=== PATIENT | male | born 1960 | race Caucasian/White ===

== ENCOUNTER 2017-04-20 08:00 | Emergency (ER) | payer MEDICAID, OTHER ==
[~2017-04-20] VITALS: Ht 193 cm; Wt 110.0 kg
[~2017-04-20 08:00] MED LIST: ABIL30TA2 PO; ASPI1TAB69 PO; CLOP75TA PO; GABA400C5 PO; HYDR-3583 PO; ISOS20TA PO; LANTUS2P SQ; LISI10TA3 PO; METO25TA3 PO; MIRT30TA PO; NITR1SUB3 SL; NOVOLOGSS; SIMV40TA PO; TRAZ150T75 PO; ZIPR1CAP12 PO
[2017-04-20 08:02] VITALS: BP 129/64; PULSE 72; RESP 14; TEMP 98.2; O2SAT 99
--- NOTE | 2017-04-20 08:49 | PD ---
HPI Chief Complaint: Skin Problem Time Seen by Provider: 08:19 Travel History International Travel<30 days: No Contact w/Intl Traveler<30days: No Traveled to known affect area: No History of Present Illness HPI Patient 48-year-old female presents emergency department for evaluation of left lower extremity wound and redness. Patient is a diabetic and states that he is followed with Dr. Mcallister for his podiatry. States that on Thursday he bumped his left griffin while working on the floor with his friend and since then he's noticed the redness started coming back. He is concerned because he has had MRSA of the same foot on his heel before. He denies any fevers nausea vomiting diarrhea or other systemic symptoms. States his symptoms have been gradually worsening. He has not been able to follow-up with his treatment coordinator as of yet. PFSH Past Medical History Hx Anticoagulant Therapy: Yes (plavix) Arthritis: Yes (OA) Asthma: No Autoimmune Disease: No Bipolar Disorder: Yes Anxiety: Yes Depression: Yes Heart Rhythm Problems: Yes (BRADYCARDIA) Cancer: Yes (SKIN ) Cardiac Catheterization: Yes (X 5, NO STENTS, MEDICALLY MANAGED) Cardiovascular Problems: Yes (SC) High Cholesterol: Yes Chemotherapy: No Chest Pain: Yes Congestive Heart Failure: No COPD: No Cerebrovascular Accident: Yes Coronary Artery Disease: Yes Diabetes: Yes Patient Takes Glucophage: No Diminished Hearing: No Endocrine: Yes Fibromyalgia: Yes Gastrointestinal Disorders: Yes (PANCREATITIS) GERD: Yes Genitourinary: No Headaches: Yes Hiatal Hernia: No Heparin Induced Thrombocytopen: No Hypertension: Yes Immune Disorder: No Implanted Vascular Access Dvce: Yes Kidney Stones: No Medical other: Yes (ARTHRITIS) Musculoskeletal: Yes Neurologic: Yes (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) Reproductive: No Respiratory: Yes (DYSPNEA ON EXERTION) Integumentary: Yes (PSORIASIS) Immunizations Current: Yes Migraines: Yes Myocardial Infarction: Yes (X 2) Pancreatitis: Yes Radiation Therapy: No Renal Failure: No Schizophrenia: Yes Seizures: Yes (2007) Sickle Cell Disease: No Sleep Apnea: Yes (NO CPAP) Thyroid Disease: No Ulcer: Yes (PUD) PNEUMOCCOCAL Vaccine (Year): 1 Past Surgical History Abdominal Surgery: No AICD: No Appendectomy: No Arteriovenous Shunt: No Body Medical Devices: HARDWARE IN LEFT LEG Cardiac Surgery: Yes (4 ANGIOPLASTY) Ear Surgery: No Endocrine Surgery: No Eye Surgery: No Genitourinary Surgery: No Gynecologic Surgery: No Insulin Pump: No Joint Replacement: Yes (LLE PLATE AND SCREWS) Neurologic Surgery: No Oral Surgery: Yes (MULTIPLE EXTRACTIONS) Pacemaker: No Thoracic Surgery: No Other Surgery: Yes (LLE PLATE AND SCREWS, RIGHT HAND SURGERY) Social History Alcohol Use: Yes (on occasion) Tobacco Use: No Substance Use: No Allergies-Medications (Allergen,Severity, Reaction): Coded Allergies: Codeine (Verified Allergy, Severe, THROAT SWEELING, 04/06/17) Prozac (Verified Allergy, Severe, Swelling, 04/06/17) *MDRO Multi-Drug Resistant Organism (Verified Allergy, Unknown, 04/06/17) MRSA heel wound 2007 MRSA PCR Screen negative 08/07/15 and 08/09/15. Cleared per Infection Control. Uncoded Allergies: OATMEAL (Allergy, Severe, HIVES, 08/29/09) Reported Meds & Prescriptions Reported Meds & Active Scripts Active Doxycycline Hyclate 100 Mg Cap 100 Mg PO BID 10 Days Reported Hydrocodone-Acetaminophen 10-325 mg Tab 1 Tab PO QID PRN Nitroglycerin SL (Nitroglycerin) 0.4 Mg Subl 0.4 Mg SL DIRECTED PRN ONE TABLET UNDER THE TONGUE NEEDED FOR CHEST PAIN, MAY REPEAT EVERY FIVE MINUTES FOR A TOTAL OF 3 DOSES OR CALL 911 IF NO RELIEF Ziprasidone 80 Mg Cap 80 Mg PO BID Simvastatin 40 Mg Tab 40 Mg PO HS Trazodone (Trazodone HCl) 150 Mg Tab 300 Mg PO HS Mirtazapine 30 Mg Tab 30 Mg PO HS Isosorbide Mononitrate 20 Mg Tab 30 Mg PO DAILY Take 2 doses 7 hours apart. Lantus Inj (Insulin Glargine) 1,000 Unit/10 Ml Vial 40 Units SQ HS Novolog Inj (Insulin Aspart) 100 Unit/Ml Inj 100 Ml .XX DIRECTED Gabapentin 400 Mg Cap 400 Cap PO QID Clopidogrel (Clopidogrel Bisulfate) 75 Mg Tab 75 Mg PO DAILY Aspirin 81 Mg Tabdr 81 Mg PO DAILY Abilify (Aripiprazole) 30 Mg Tab 30 Mg PO DAILY Metoprolol Tartrate 25 Mg Tab 25 Mg PO Q12HR Lisinopril 10 Mg Tab 10 Mg PO DAILY Review of Systems Except as stated in HPI: all other systems reviewed are Neg Physical Exam Narrative GENERAL: Well-developed well-nourished no apparent distress SKIN: There is a small abrasion in the anterior distal most griffin over the tibia. Minimal surrounding erythema. There is also some minimal surrounding soft tissue edema without any evidence of abscess. Injure webspace and plantar surfaces her intact. There is no no lymphangitis HEAD: Atraumatic. Normocephalic. EYES: Pupils equal and round. No scleral icterus. No injection or drainage. ENT: No nasal bleeding or discharge. Mucous membranes pink and moist. NECK: Trachea midline. No JVD. CARDIOVASCULAR: Regular rate and rhythm. No murmur appreciated. RESPIRATORY: No accessory muscle use. Clear to auscultation. Breath sounds equal bilaterally. GASTROINTESTINAL: Abdomen soft, non-tender, nondistended. Hepatic and splenic margins not palpable. MUSCULOSKELETAL: No obvious deformities. No clubbing. No cyanosis. No edema. NEUROLOGICAL: Awake and alert. No obvious cranial nerve deficits. Motor grossly within normal limits. Normal speech. PSYCHIATRIC: Appropriate mood and affect; insight and judgment normal. Data Data Last Documented VS Vital Signs Date Time Temp Pulse Resp B/P Pulse Ox O2 Delivery O2 Flow Rate FiO2 04/20/17 08:12 89 18 04/20/17 08:02 98.2 129/64 99 Orders Complete Blood Count With Diff (04/20/17 08:19) Basic Metabolic Panel (Bmp) (04/20/17 08:19) Tibia/Fibula (Ap/Lat) (04/20/17 ) Acetaminophen (Tylenol) (04/20/17 10:00) Doxycycline (Vibramycin) (04/20/17 11:00) Labs Laboratory Tests Test 04/20/17 04/20/17 09:12 09:47 Sodium Level 136 MEQ/L Potassium Level 4.9 MEQ/L Chloride Level 101 MEQ/L Carbon Dioxide Level 27.1 MEQ/L Anion Gap 8 MEQ/L Blood Urea Nitrogen 27 MG/DL Creatinine 1.67 MG/DL Estimat Glomerular Filtration 42 ML/MIN Rate Random Glucose 232 MG/DL Calcium Level 9.3 MG/DL White Blood Count 2.8 TH/MM3 Red Blood Count 4.30 MIL/MM3 Hemoglobin 13.0 GM/DL Hematocrit 38.2 % Mean Corpuscular Volume 88.8 FL Mean Corpuscular Hemoglobin 30.1 PG Mean Corpuscular Hemoglobin 33.9 % Concent Red Cell Distribution Width 12.8 % Platelet Count 112 TH/MM3 Mean Platelet Volume 8.5 FL Neutrophils (%) (Auto) 60.1 % Lymphocytes (%) (Auto) 26.1 % Monocytes (%) (Auto) 8.0 % Eosinophils (%) (Auto) 4.5 % Basophils (%) (Auto) 1.3 % Neutrophils # (Auto) 1.7 TH/MM3 Lymphocytes # (Auto) 0.7 TH/MM3 Monocytes # (Auto) 0.2 TH/MM3 Eosinophils # (Auto) 0.1 TH/MM3 Basophils # (Auto) 0.0 TH/MM3 CBC Comment DIFF FINAL Differential Comment MDM Medical Decision Making Medical Screen Exam Complete: Yes Emergency Medical Condition: Yes Differential Diagnosis Cellulitis, osteomyelitis seems highly unlikely, sepsis seems highly unlikely, diabetic feet. Narrative Course Patient was roomed emergency department, basic labs were drawn and sent. The patient seems to have an uncomplicated early cellulitis of left lower extremity. Patient does have a history of chronic renal insufficiency and with his diabetes he will be placed on doxycycline. His basic labs are reassuring. Discussed need follow-up with his treatment coordinator and return to ED criteria. Diagnosis Primary Impression: Cellulitis Qualified Code: L03.116 - Cellulitis of left lower extremity Med/Other Pt SpecificInfo: Prescription(s) given Scripts Doxycycline Hyclate 100 Mg [id number] Mg PO BID 10 Days Ref 0 Prov:Edwin Gardner MD 04/20/17 Disposition: 01 DISCHARGE HOME Condition: Stable Edwin Gardner MD April 20, 2017 08:49
--- NOTE | 2017-04-20 09:16 | RADRPT ---
EXAM DATE/TIME: 04/20/2017 08:16 [facility] COMPARISON: No previous studies available for comparison. INDICATIONS : Patient states distal lower leg pain. MEDICAL HISTORY : Hypertension. SURGICAL HISTORY : Left Tib/Fib ORIF 2005 ENCOUNTER: Initial ACUITY: 3 days PAIN SCORE: 7/10 LOCATION: Distal leg. FINDINGS: AP and lateral views of the left tibia and fibula were obtained and demonstrate that the patient is s tatus post open ridgid internal fixation with screw-plate fixation devices transfixing mid and distal femur fractures as well as distal fibular fracture. The alignment is anatomic. No fractures appear o ld. There is soft tissue swelling over the distal fibula. There is no acute fracture or malalignment. There is a spur off the inferior calcaneus at the site of attachment of the plantar aponuerosis. The re are well-corticated ossific structures along the distal fibula. These may be related to remote tra tino. CONCLUSION: 1. Mild soft tissue swelling over the distal fibula with no acute bony abnormality. 2. Status post remote open ridgid internal fixation. Ariel Jack MD on April 20, 2017 at 9:13 Board Certified Radiologist. This report was verified electronically.
[2017-04-20 09:58] LABS: AUTOMATED NEUTROPHIL # 1.7 TH/MM3 (1.8-7.7); BASOPHIL % 1.3 % (0.0-2.0); EOSINOPHIL # 0.1 TH/MM3 (0-0.4); EOSINOPHIL % 4.5 % (0.0-4.0); HEMATOCRIT 38.2 % (39.0-51.0); HEMO FLAGS DIFF FINAL; LYMPH % 26.1 % (9.0-44.0); LYMPHOCYTE # 0.7 TH/MM3 (1.0-4.8); MEAN CELL VOLUME 88.8 FL (80.0-100.0); MEAN CORPUSCULAR HEMOGLOBIN 30.1 PG (27.0-34.0); MEAN CORPUSCULAR HGB CONC 33.9 % (32.0-36.0); NEUT % 60.1 % (16.0-70.0); PLATELET COUNT 112 TH/MM3 (150-450); RED CELL DISTRIBUTION WIDTH 12.8 % (11.6-17.2); WHITE BLOOD COUNT 2.8 TH/MM3 (4.0-11.0)
[2017-04-20] MEDS ORDERED: ACETAMINOPHEN 325 MG TAB PO ONE (10:00)
[2017-04-20 10:03] LABS: BICARBONATE 27.1 MEQ/L (21.0-32.0); POTASSIUM 4.9 MEQ/L (3.5-5.1)
[2017-04-20] MEDS ORDERED: DOXY100C PO (10:48)
[2017-04-20] MEDS ORDERED: DOXYCYCLINE HYCLATE 100 MG CAP PO ONE (11:00)
== END 2017-04-20 11:48 | disposition home or self-care (01) ==
LOC: NEPE 08:00
DX: L03.116 Cellulitis of left lower limb (principal); E11.9 Type 2 diabetes mellitus without complications; E78.00 Pure hypercholesterolemia, unspecified; I25.2 Old myocardial infarction; I25.10 Atherosclerotic heart disease of native coronary artery without angina pectoris; M79.7 Fibromyalgia; I10 Essential (primary) hypertension; Z86.73 Personal history of transient ischemic attack (TIA), and cerebral infarction without residual deficits; Z79.02 Long term (current) use of antithrombotics/antiplatelets; Z86.14 Personal history of Methicillin resistant Staphylococcus aureus infection
CPT/HCPCS: 73590; 80048; 85025; 99284

== ENCOUNTER 2017-06-30 09:05 | Inpatient (IN) | payer OTHER, MEDICARE ==
[2017-06-30] VITALS (17 sets, daily range): BP systolic 130–160; BP diastolic 81–90; PULSE 54–79; RESP 18–20; TEMP 97.3–98.5; O2SAT 96–100
[~2017-06-30 09:05] MED LIST changes: +DOXY100C PO
[2017-06-30] MEDS ORDERED: ASPI81CH CHEW (09:28)
[2017-06-30] MEDS ORDERED: LANTUS2P SQ (09:28)
[2017-06-30] MEDS ORDERED: TRAZ300T2 PO (09:28)
[2017-06-30] MEDS ORDERED: SODIUM CHLORIDE 0.9% FLUSH 10 ML FLUSH IVF PRN (09:30)
[2017-06-30 09:58] LABS: AUTOMATED NEUTROPHIL # 1.6 TH/MM3 (1.8-7.7); BASOPHIL % 0.9 % (0.0-2.0); EOSINOPHIL # 0.1 TH/MM3 (0-0.4); EOSINOPHIL % 3.2 % (0.0-4.0); HEMATOCRIT 37.8 % (39.0-51.0); HEMO FLAGS DIFF FINAL; LYMPH % 33.4 % (9.0-44.0); MEAN CELL VOLUME 87.2 FL (80.0-100.0); MEAN CORPUSCULAR HEMOGLOBIN 29.7 PG (27.0-34.0); MEAN CORPUSCULAR HGB CONC 34.1 % (32.0-36.0); MONO % 8.6 % (0.0-8.0); NEUT % 53.9 % (16.0-70.0); PLATELET COUNT 124 TH/MM3 (150-450); RED BLOOD COUNT 4.33 MIL/MM3 (4.50-5.90); RED CELL DISTRIBUTION WIDTH 12.6 % (11.6-17.2)
[2017-06-30] MEDS ORDERED: ASPIRIN 81 MG CHEW TAB CHEW ONE ×2 (10:00)
[2017-06-30] MEDS ORDERED: NITROGLYCERIN 0.4 MG SL 25 TABS/BTL SL ONE (10:00)
--- NOTE | 2017-06-30 10:04 | PD ---
HPI Chief Complaint: Cardiac Complaint Time Seen by Provider: 09:15 Travel History International Travel<30 days: No Contact w/Intl Traveler<30days: No Traveled to known affect area: No History of Present Illness HPI Patient is a 57-year-old male with a history of coronary artery disease last stress test was in June 2016 presents the emergency department with chest tightness in the middle of his chest with radiation down his left arm, it was shortness of breath since this morning. Patient states he was on the bus going to request to have his routine lab work done first position when the symptoms started. He states it feels like the last time he was in the hospital when he had a cardiac workup which was essentially negative and discharged home. He states he follows with Dr. abbott. He has not had a follow-up appointment with Dr. Vee in some time. He took his baby aspirin this morning as well as his Plavix. PFSH Past Medical History Hx Anticoagulant Therapy: Yes (PLAVIX) Arthritis: Yes (OA) Asthma: No Autoimmune Disease: No Bipolar Disorder: Yes Anxiety: Yes Depression: Yes Heart Rhythm Problems: Yes (BRADYCARDIA) Cancer: Yes (SKIN ) Cardiac Catheterization: Yes (X 5, NO STENTS, MEDICALLY MANAGED) Cardiovascular Problems: Yes High Cholesterol: Yes Chemotherapy: No Chest Pain: Yes Congestive Heart Failure: No COPD: No Cerebrovascular Accident: Yes Coronary Artery Disease: Yes Diabetes: Yes Patient Takes Glucophage: No Diminished Hearing: No Endocrine: Yes Fibromyalgia: Yes Gastrointestinal Disorders: Yes (PANCREATITIS) GERD: Yes Genitourinary: No Headaches: Yes Hiatal Hernia: No Heparin Induced Thrombocytopen: No Hypertension: Yes Immune Disorder: No Implanted Vascular Access Dvce: Yes Kidney Stones: No Medical other: Yes (ARTHRITIS) Musculoskeletal: Yes Neurologic: Yes (stroke in 2008. left sided weakness residual) Psychiatric: Yes (AGORAPHOBIA) Reproductive: No Respiratory: Yes (DYSPNEA ON EXERTION) Integumentary: Yes (PSORIASIS) Immunizations Current: Yes Migraines: Yes Myocardial Infarction: Yes (X 2) Pancreatitis: Yes Radiation Therapy: No Renal Failure: No Schizophrenia: Yes Seizures: Yes (2007) Sickle Cell Disease: No Sleep Apnea: Yes (NO CPAP) Thyroid Disease: No Ulcer: Yes (PUD) Tetanus Vaccination: < 5 Years PNEUMOCCOCAL Vaccine (Year): 1 Past Surgical History Abdominal Surgery: No AICD: No Appendectomy: No Arteriovenous Shunt: No Body Medical Devices: HARDWARE IN LEFT LEG Cardiac Surgery: Yes (4 ANGIOPLASTY) Ear Surgery: No Endocrine Surgery: No Eye Surgery: No Genitourinary Surgery: No Gynecologic Surgery: No Insulin Pump: No Joint Replacement: Yes (LLE PLATE AND SCREWS) Neurologic Surgery: No Oral Surgery: Yes (MULTIPLE EXTRACTIONS) Pacemaker: No Thoracic Surgery: No Other Surgery: Yes (LLE PLATE AND SCREWS, RIGHT HAND SURGERY) Social History Alcohol Use: Yes (on occasion) Tobacco Use: No Substance Use: No Allergies-Medications (Allergen,Severity, Reaction): Coded Allergies: Codeine (Verified Allergy, Severe, THROAT SWEELING, 06/30/17) Prozac (Verified Allergy, Severe, Swelling, 06/30/17) *MDRO Multi-Drug Resistant Organism (Verified Allergy, Unknown, 06/30/17) MRSA heel wound 2007 MRSA PCR Screen negative 08/07/15 and 08/09/15. Cleared per Infection Control. Uncoded Allergies: OATMEAL (Allergy, Severe, HIVES, 08/29/09) Reported Meds & Prescriptions Reported Meds & Active Scripts Active Reported Trazodone (Trazodone HCl) 300 Mg Tab 300 Mg PO HS Lantus Inj (Insulin Glargine) 1,000 Unit/10 Ml Vial 16 Units SQ [facility] [employer] D[employer]NER Aspirin 81 Mg Chew 81 Mg CHEW DAILY Hydrocodone-Acetaminophen 10-325 mg Tab 1 Tab PO QID PRN Nitroglycerin SL (Nitroglycerin) 0.4 Mg Subl 0.4 Mg SL DIRECTED PRN ONE TABLET UNDER THE TONGUE NEEDED FOR CHEST PAIN, MAY REPEAT EVERY FIVE MINUTES FOR A TOTAL OF 3 DOSES OR CALL 911 IF NO RELIEF Ziprasidone 80 Mg Cap 80 Mg PO BID Simvastatin 40 Mg Tab 40 Mg PO HS Mirtazapine 30 Mg Tab 30 Mg PO HS Isosorbide Mononitrate 20 Mg Tab 30 Mg PO DAILY Take 2 doses 7 hours apart. Lantus Inj (Insulin Glargine) 1,000 Unit/10 Ml Vial 65 Units SQ HS Novolog Inj (Insulin Aspart) 100 Unit/Ml Inj 100 Ml .XX DIRECTED Gabapentin 400 Mg Cap 400 Cap PO QID Clopidogrel (Clopidogrel Bisulfate) 75 Mg Tab 75 Mg PO DAILY Abilify (Aripiprazole) 30 Mg Tab 30 Mg PO DAILY Metoprolol Tartrate 25 Mg Tab 25 Mg PO Q12HR Lisinopril 10 Mg Tab 10 Mg PO DAILY Review of Systems Except as stated in HPI: all other systems reviewed are Neg Physical Exam Narrative GENERAL: Well-developed well-nourished in no obvious distress SKIN: Focused skin assessment warm/dry. HEAD: Atraumatic. Normocephalic. EYES: Pupils equal and round. No scleral icterus. No injection or drainage. ENT: No nasal bleeding or discharge. Mucous membranes pink and moist. NECK: Trachea midline. No JVD. CARDIOVASCULAR: Regular rate and rhythm. No murmur appreciated. 2+ bilaterally equal pulses in all 4 extremities. RESPIRATORY: No accessory muscle use. Clear to auscultation. Breath sounds equal bilaterally. GASTROINTESTINAL: Abdomen soft, non-tender, nondistended. Hepatic and splenic margins not palpable. MUSCULOSKELETAL: No obvious deformities. No clubbing. No cyanosis. No edema. NEUROLOGICAL: Awake and alert. No obvious cranial nerve deficits. Motor grossly within normal limits. Normal speech. PSYCHIATRIC: Appropriate mood and affect; insight and judgment normal. Somewhat odd but certainly not gravely disabled, denies suicidal homicidal ideation. Data Data Last Documented VS Vital Signs Date Time Temp Pulse Resp B/P Pulse Ox O2 Delivery O2 Flow Rate FiO2 06/30/17 11:14 66 18 157/85 98 06/30/17 10:10 Room Air 06/30/17 09:08 97.3 Orders Electrocardiogram (06/30/17 09:18) Ckmb (Isoenzyme) Profile (06/30/17 09:18) Complete Blood Count With Diff (06/30/17 09:18) Comprehensive Metabolic Panel (06/30/17 09:18) Magnesium (Mg) (06/30/17 09:18) Prothrombin Time / Inr (Pt) (06/30/17 09:18) Act Partial Throm Time (Ptt) (06/30/17 09:18) Troponin I (06/30/17 09:18) Lipase (06/30/17 09:18) Ecg Monitoring (06/30/17 09:18) Iv Access Insert/Monitor (06/30/17 09:18) Oximetry (06/30/17 09:18) Oxygen Administration (06/30/17 09:18) Sodium Chloride 0.9% Flush (Ns Flush) (06/30/17 09:30) Aspirin Chew (Aspirin Chew) (06/30/17 10:00) Aspirin Chew (Aspirin Chew) (06/30/17 10:00) Nitroglycerin Sl (Nitrostat Sl) (06/30/17 10:00) Chest, Single Ap (06/30/17 ) CKMB (06/30/17 09:35) CKMB% (06/30/17 09:35) Vascular Access Team Consult/P PRN (06/30/17 11:02) Vascular Poc Ultrasound (06/30/17 ) Heparin Infusion AURELIA.Q1H (06/30/17 11:27) Heparin Inj (Heparin Inj) (06/30/17 11:30) Heparin Inj (Heparin Inj) (06/30/17 17:30) Heparin Inj (Heparin Inj) (06/30/17 17:30) Heparin-D5w Inj (Heparin-D5w Inj) (06/30/17 11:30) Cbc No Diff, Includes Plts (07/03/17 06:00) Act Partial Throm Time (Ptt) (06/30/17 18:27) Occult Blood (Hemoccult) Stool (06/30/17 11:27) Admit Order (Ed Use Only) (06/30/17 ) Labs Laboratory Tests Test 06/30/17 09:35 White Blood Count 3.0 TH/MM3 Red Blood Count 4.33 MIL/MM3 Hemoglobin 12.9 GM/DL Hematocrit 37.8 % Mean Corpuscular Volume 87.2 FL Mean Corpuscular Hemoglobin 29.7 PG Mean Corpuscular Hemoglobin 34.1 % Concent Red Cell Distribution Width 12.6 % Platelet Count 124 TH/MM3 Mean Platelet Volume 8.0 FL Neutrophils (%) (Auto) 53.9 % Lymphocytes (%) (Auto) 33.4 % Monocytes (%) (Auto) 8.6 % Eosinophils (%) (Auto) 3.2 % Basophils (%) (Auto) 0.9 % Neutrophils # (Auto) 1.6 TH/MM3 Lymphocytes # (Auto) 1.0 TH/MM3 Monocytes # (Auto) 0.3 TH/MM3 Eosinophils # (Auto) 0.1 TH/MM3 Basophils # (Auto) 0.0 TH/MM3 CBC Comment DIFF FINAL Differential Comment Prothrombin Time 11.3 SEC Prothromb Time International 1.0 RATIO Ratio Activated Partial 24.9 SEC Thromboplast Time Sodium Level 139 MEQ/L Potassium Level 3.9 MEQ/L Chloride Level 102 MEQ/L Carbon Dioxide Level 27.5 MEQ/L Anion Gap 10 MEQ/L Blood Urea Nitrogen 17 MG/DL Creatinine 1.39 MG/DL Estimat Glomerular Filtration 52 ML/MIN Rate Random Glucose 212 MG/DL Calcium Level 8.8 MG/DL Magnesium Level 2.0 MG/DL Total Bilirubin 0.7 MG/DL Aspartate Amino Transf 18 U/L (AST/SGOT) Alanine Aminotransferase 22 U/L (ALT/SGPT) Alkaline Phosphatase 74 U/L Total Creatine Kinase 331 U/L Creatine Kinase MB 11.3 NG/ML Creatine Kinase MB % 3.4 % Troponin I 0.15 NG/ML Total Protein 7.3 GM/DL Albumin 4.3 GM/DL Lipase 109 U/L MDM Medical Decision Making Medical Screen Exam Complete: Yes Emergency Medical Condition: Yes Interpretation(s) EKG shows sinus rhythm with a right bundle branch block, left anterior fascicular block consistent with bifascicular block. T-wave flattening in [address] No concerning [address] segment elevations. Comparison to a 02/17/16 shows no change. This is an abnormal EKG. Differential Diagnosis ACS, [place], pneumonia, GERD. Narrative Course Patient roomed in emergency department, abnormal bifascicular block on EKG but no change from previous EKG. His troponin is 0.15 which is new for him. He states he follows with Dr. Mariusz Gerard discussed with him and I think that he has a good enough story to heparinize him at this point. Dr. Coronel had no objections and caroll see him. Patient was discussed with Dr. Mazariegos for admission. Patient is chest pain-free in the emergency department. Diagnosis Primary Impression: Acute coronary syndrome Admitting Information Admitting Physician Requests: Admit Condition: Stable Edwin Gardner MD Jun 30, 2017 10:04
[2017-06-30 10:07] LABS: APTT (PATIENT) 24.9 SEC (24.3-30.1); PROTHROMBIN TIME - PATIENT 11.3 SEC (9.8-11.6)
[2017-06-30 10:24] LABS: ANION GAP 10 MEQ/L (5-15); AST (GOT) 18 U/L (15-37); BICARBONATE 27.5 MEQ/L (21.0-32.0); BLOOD UREA NITROGEN 17 MG/DL (7-18); CHLORIDE 102 MEQ/L (98-107); GLOMERULAR FILTRATION RATE 52 ML/MIN (>89); POTASSIUM 3.9 MEQ/L (3.5-5.1); SODIUM (NA) 139 MEQ/L (136-145)
[2017-06-30 10:29] LABS: ALKALINE PHOSPHATASE 74 U/L (45-117); ALT (GPT) 22 U/L (12-78); CREATINE KINASE 331 U/L (39-308); TOTAL BILIRUBIN ADULT 0.7 MG/DL (0.2-1.0)
--- NOTE | 2017-06-30 10:37 | RADRPT ---
EXAM DATE/TIME: 06/30/2017 10:11 [facility] COMPARISON: CHEST SINGLE AP, July 02, 2016, 17:02. INDICATIONS : Short of breath. Left arm numbness today. MEDICAL HISTORY : Hypertension. Diabetes mellitus type 2. Cardiovascular disease. SURGICAL HISTORY : None. ENCOUNTER: Initial ACUITY: 1 day PAIN SCORE: 0/10 LOCATION: Bilateral chest FINDINGS: A single view of the chest demonstrates the lungs to be symmetrically aerated without evidence of mas s, infiltrate or effusion. The cardiomediastinal contours are unremarkable. Osseous structures are intact. CONCLUSION: No acute disease. Royal Shay MD on June 30, 2017 at 10:33 Board Certified Radiologist. This report was verified electronically.
[2017-06-30 10:41] LABS: CKMB 11.3 NG/ML (0.5-3.6)
[2017-06-30] MEDS ORDERED: HEPARIN SODIUM - IV 10,000 UNITS/10 ML VIAL IV ONE (11:30)
[2017-06-30] MEDS ORDERED: MAGNESIUM HYDROXIDE SUSP 30 ML CUP PO PRN (11:45)
[2017-06-30] MEDS ORDERED: BISACODYL 10 MG SUPP RECTAL PRN (11:45)
[2017-06-30] MEDS ORDERED: LACTULOSE SYRUP 20 GM/30 ML CUP PO PRN (11:45)
[2017-06-30] MEDS ORDERED: ONDANSETRON HCL 4 MG/2 ML VIAL IVP PRN (11:45)
[2017-06-30] MEDS ORDERED: NALOXONE HCL 0.4 MG/ML AMP IV PRN (11:45)
[2017-06-30] MEDS ORDERED: SODIUM CHLORIDE 0.9% FLUSH 10 ML FLUSH IV FLUSH PRN (11:45)
[2017-06-30] MEDS ORDERED: SENNOSIDES 8.6 MG TAB PO PRN (11:45)
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
[2017-06-30] MEDS: HEPARIN-D5W INJ 250 ML IV SCH (12:12)
[2017-06-30] MEDS: SODIUM CHLOR 0.9% 1000 ML INJ 1,000 ML IV SCH (14:00)
[2017-06-30 15:18] LABS: BACTERIA, URINE RARE /hpf; BLOOD, URINE NEG (NEG); COMMENT (UR) CULT NOT INDICATED; CULTURE IF INDICATED CULT NOT INDICATED; GLUCOSE,URINE TRACE mg/dL (NEG); KETONE, URINE NEG (NEG); NITRITE,URINE NEG (NEG); SQUAMOUS EPITHELIAL CELL URINE <1 /hpf (0-5); URINE COLOR LIGHT-YELLOW (YELLW/STRAW)
[2017-06-30] MEDS: INSULIN ASPART SUPPLEMENTAL SCALE SQ SCH ×2 (15:29→21:03)
[2017-06-30] MEDS: GABAPENTIN 300 MG CAP PO SCH ×3 (16:00→20:57)
[2017-06-30] MEDS: ACETAMINOPHEN/HYDROcodone 325 MG/10 MG TAB PO PRN (16:01)
[2017-06-30] MEDS ORDERED: HEPARIN SODIUM - IV 10,000 UNITS/10 ML VIAL IV PRN ×2 (17:30)
[2017-06-30] MEDS ORDERED: ACETAMINOPHEN/HYDROcodone 325 MG/10 MG TAB PO PRN (18:15)
[2017-06-30 19:12] LABS: CHLAMYDIA PCR NOT DETECTED (NOT DETECT); NEISSERIA PCR NOT DETECTED (NOT DETECT)
[2017-06-30] MEDS: SODIUM CHLORIDE 0.9% FLUSH 10 ML FLUSH IV FLUSH SCH (20:57)
[2017-06-30] MEDS: METOPROLOL TARTRATE 25 MG TAB PO SCH (20:57)
[2017-06-30] MEDS ORDERED: ZIPRASIDONE HCL 80 MG CAP PO SCH (21:00)
[2017-06-30] MEDS ORDERED: ACETAMINOPHEN/HYDROcodone 325 MG/10 MG TAB PO ONE (21:00)
[2017-06-30] MEDS ORDERED: MIRTAZAPINE 15 MG TAB PO SCH (21:00)
[2017-06-30] MEDS ORDERED: PRAVASTATIN SOD 80 MG TAB PO SCH (21:00)
[2017-06-30 21:06] LABS: APTT (PATIENT) 60.3 SEC (24.3-30.1)
[2017-06-30] MEDS: ZIPRASIDONE HCL 40 MG CAP PO SCH (22:10)
[2017-07-01] VITALS (17 sets, daily range): BP systolic 129–149; BP diastolic 78–95; PULSE 43–58; RESP 18–20; TEMP 97.4–98.6; O2SAT 97–98
[2017-07-01] MEDS: SODIUM CHLOR 0.9% 1000 ML INJ 1,000 ML IV SCH (01:19)
[2017-07-01 06:11] LABS: BASOPHIL % 1.2 % (0.0-2.0); EOSINOPHIL # 0.1 TH/MM3 (0-0.4); EOSINOPHIL % 3.9 % (0.0-4.0); HEMO FLAGS DIFF FINAL; LYMPH % 35.2 % (9.0-44.0); LYMPHOCYTE # 1.3 TH/MM3 (1.0-4.8); MEAN CORPUSCULAR HEMOGLOBIN 30.6 PG (27.0-34.0); MEAN CORPUSCULAR HGB CONC 34.3 % (32.0-36.0); MONO % 6.1 % (0.0-8.0); NEUT % 53.6 % (16.0-70.0); PLATELET COUNT 139 TH/MM3 (150-450); RED BLOOD COUNT 4.83 MIL/MM3 (4.50-5.90); RED CELL DISTRIBUTION WIDTH 12.9 % (11.6-17.2); WHITE BLOOD COUNT 3.7 TH/MM3 (4.0-11.0)
[2017-07-01] MEDS: INSULIN ASPART SUPPLEMENTAL SCALE SQ SCH (06:11)
[2017-07-01 06:21] LABS: APTT (PATIENT) 32.2 SEC (24.3-30.1)
[2017-07-01 06:35] LABS: ALT (GPT) 24 U/L (12-78); ANION GAP 7 MEQ/L (5-15); AST (GOT) 17 U/L (15-37); BICARBONATE 29.3 MEQ/L (21.0-32.0); BLOOD UREA NITROGEN 12 MG/DL (7-18); CHLORIDE 101 MEQ/L (98-107); GLOMERULAR FILTRATION RATE 53 ML/MIN (>89); SODIUM (NA) 137 MEQ/L (136-145)
[2017-07-01 06:38] LABS: ALKALINE PHOSPHATASE 76 U/L (45-117)
[2017-07-01] MEDS ORDERED: CLOPIDOGREL 75 MG TAB PO SCH (09:00)
[2017-07-01] MEDS: SODIUM CHLORIDE 0.9% FLUSH 10 ML FLUSH IV FLUSH SCH (09:00)
[2017-07-01] MEDS ORDERED: ISOSORBIDE MONONITRATE 30 MG TAB PO SCH (09:00)
[2017-07-01] MEDS ORDERED: ASPIRIN 81 MG CHEW TAB CHEW SCH (09:00)
[2017-07-01] MEDS ORDERED: ARIPiprazole 30 MG TAB PO SCH (09:00)
[2017-07-01] MEDS ORDERED: LISINOPRIL 10 MG TAB PO SCH (09:00)
[2017-07-01] MEDS ORDERED: PANT20TA2 PO (09:33)
--- NOTE | 2017-07-01 09:34 | MB ---
cc: RENE DALE M.D. DATE OF CONSULTATION: 07/01/2017 REASON FOR CONSULTATION Chest pain, rule out angina. HISTORY OF PRESENT ILLNESS Mr. Alonso is a 57-year-old gentleman with a history of high blood pressure, coronary artery disease, previous KS, previous CVA, previous TIA, previous hospitalization last year due to chest pain. A nuclear stress study was negative. He was admitted yesterday due to chest and arm pain. The gentleman refers he was going to picker / packer his medication and felt a sharp pain in his left arm. He decided to come to the emergency room and he was admitted for further evaluation and management. The chart was reviewed. The patient was evaluated. ALLERGIES 1. CODEINE. 2. PROZAC. 3. OATMEAL. SOCIAL HISTORY The gentleman denies smoking and drinking. FAMILY HISTORY Noncontributory to his current medical condition. MEDICATIONS At home is on: 1. Trazodone. 2. Lantus. 3. Aspirin. 4. Hydrocodone. 5. Ziprasidone. 6. Mirtazapine. 7. Imdur. 8. NovoLog. 9. Neurontin. 10.Plavix. 11.Abilify. 12.Metoprolol. 13.Lisinopril. Heparin IV was initiated during hospitalization. REVIEW OF SYSTEMS He refers no chest pain, no chest discomfort, no fever. PHYSICAL EXAMINATION GENERAL: Alert, fully oriented. VITAL SIGNS: Blood pressure 140/90, pulse 52, respiratory rate 18. LUNGS: Ventilated. CARDIOVASCULAR: S1, S2. No gallop. No murmur. ABDOMEN: Soft. No mass. No bruit. EXTREMITIES: No edema. ELECTROCARDIOGRAM Electrocardiogram indicates sinus rhythm, left anterior fascicular block, right bundle branch block, diffuse ST changes, no significant change. LABORATORY Potassium 4.0. Creatinine 1.37. Troponin 0.01. INR 1.0. Hemoglobin 14. ASSESSMENT AND RECOMMENDATION Mr. Alonso has atypical left arm pain. No chest pain or discomfort. Troponin is negative. At this point discontinue IV heparin. The patient has no chest pain, no left arm pain since hospitalization. He has a previous nuclear stress study that was negative. No change in troponin. The gentleman wants to go home and be followed as an outpatient because he has an appointment this evening at 6:00 p.m. Okay to discharge home. I will see him in 3-4 weeks at the office. Rene Dale MD HS/BT /8:46 AM /9:16 AM
[2017-07-01] MEDS: METOPROLOL TARTRATE 25 MG TAB PO SCH (09:42)
[2017-07-01] MEDS: GABAPENTIN 300 MG CAP PO SCH (09:42)
[2017-07-01] MEDS: ZIPRASIDONE HCL 40 MG CAP PO SCH (09:43)
[2017-07-01] MEDS: ACETAMINOPHEN/HYDROcodone 325 MG/10 MG TAB PO PRN (09:44)
--- NOTE | 2017-07-01 09:47 | EKG ---
Date Performed: 06/30/2017 Time Performed: 17:45:14 PTAGE: 57 years EKG: Sinus rhythm with borderline 1st degree A-V block Left axis deviation RBBB with left anterior fascicular block Ab normal ECG PREVIOUS TRACING : 06/30/2017 09.31 DOCTOR: Awais Jurado Interpretating Date/Time 07/01/2017 09:47:20
[2017-07-01] MEDS: HEPARIN-D5W INJ 250 ML IV SCH (09:51)
--- NOTE | 2017-07-01 11:51 | EKG ---
Date Performed: 06/30/2017 Time Performed: 09:31:14 PTAGE: 57 years EKG: Sinus rhythm RIGHT BUNDLE BRANCH BLOCK LEFT ANTERIOR FASCICULAR BLOCK PROBABLE SEPTAL MYOCARDIAL INFARCTION ABNOR MAL ECG PREVIOUS TRACING : 07/02/2016 23.09 DOCTOR: Awais Jurado Interpretating Date/Time 07/01/2017 11:49:59
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
== END 2017-07-01 13:59 | disposition home or self-care (01) | DRG 313 ==
LOC: NEPC 09:05 → NEDA 11:34 → HCIS 13:30
PROVIDERS: ADMIT Internal Medicine; ATTEND Internal Medicine
DX: R07.9 Chest pain, unspecified (principal); I25.2 Old myocardial infarction; I10 Essential (primary) hypertension; M79.602 Pain in left arm; I25.10 Atherosclerotic heart disease of native coronary artery without angina pectoris; Z86.73 Personal history of transient ischemic attack (TIA), and cerebral infarction without residual deficits; E11.9 Type 2 diabetes mellitus without complications; Z79.4 Long term (current) use of insulin; I69.398 Other sequelae of cerebral infarction; H54.42 Blindness, left eye, normal vision right eye; R36.9 Urethral discharge, unspecified; R30.0 Dysuria; F31.9 Bipolar disorder, unspecified; E78.00 Pure hypercholesterolemia, unspecified; F40.00 Agoraphobia, unspecified; Z85.828 Personal history of other malignant neoplasm of skin
CPT/HCPCS: 71010; 76937; 80053; 81001; 82550; 82552; 82948; 83690; 83735; 84484; 85025; 85610; 85730; 87491; 87591; 93005; J1644; J1815; J7030

== ENCOUNTER 2018-04-22 14:45 | Emergency (ER) | payer MEDICARE, MEDICAID ==
[~2018-04-22] VITALS: Ht 193 cm; Wt 109.0 kg
[~2018-04-22 14:45] MED LIST changes: -ABIL30TA2 PO; +ABIL30TA5 PO; +ASPI-516 CHEW; -ASPI1TAB69 PO; -DOXY100C PO; +PANT20TA2 PO; -TRAZ150T75 PO; +TRAZ300T2 PO
[2018-04-22 14:51] VITALS: BP 133/70; PULSE 69; RESP 20; TEMP 98.4; O2SAT 96
[2018-04-22] MEDS ORDERED: GABA600T PO (15:03)
[2018-04-22] MEDS ORDERED: DULA0.5I SQ (15:03)
[2018-04-22] MEDS ORDERED: PRED20 PO (15:21)
[2018-04-22] MEDS ORDERED: ROBA750T PO (15:21)
--- NOTE | 2018-04-22 15:22 | PD ---
HPI Chief Complaint: Back/ Neck Pain or Injury Time Seen by Provider: 14:58 Travel History International Travel<30 days: No Contact w/Intl Traveler<30days: No Traveled to known affect area: No History of Present Illness HPI 57-year-old male presents to the emergency department for evaluation of low back pain that radiates down the left leg. Patient states he started with these symptoms 4 weeks ago. They have been intermittent. He sees Dr. Roberts and had an MRI done last week which showed a pinched nerve. Patient states that he is going to physical therapy for this pain. He went to physical therapy this morning and started with worsening pain after physical therapy. He thinks he overdid it doing physical therapy. The patient states the pain is currently 8/10 to the left lower back that radiates down the left leg. It is worse with ambulation, slightly relieved with staying still. He is currently on hydrocodone for this pain by his primary care physician. He last took this at noon. Patient denies any fevers or chills. No loss of bowel or bladder control. No saddle anesthesias. Patient is ambulatory, but with pain. He states the pain is also worse with sitting down and standing up. Mild severity. PFSH Past Medical History Hx Anticoagulant Therapy: Yes Arthritis: Yes (OA) Asthma: No Autoimmune Disease: No Bipolar Disorder: Yes Anxiety: Yes Depression: Yes Heart Rhythm Problems: Yes (BRADYCARDIA) Cancer: Yes (SKIN ) Cardiac Catheterization: Yes (X 5, NO STENTS, MEDICALLY MANAGED) Cardiovascular Problems: Yes High Cholesterol: Yes Chemotherapy: No Chest Pain: Yes Congestive Heart Failure: No COPD: No Cerebrovascular Accident: Yes Coronary Artery Disease: Yes Diabetes: Yes Patient Takes Glucophage: No Diminished Hearing: No Endocrine: Yes Fibromyalgia: Yes Gastrointestinal Disorders: Yes (PANCREATITIS) GERD: Yes Genitourinary: No Headaches: Yes Hiatal Hernia: No Heparin Induced Thrombocytopen: No Hypertension: Yes Immune Disorder: No Implanted Vascular Access Dvce: Yes Kidney Stones: No Medical other: Yes (ARTHRITIS) Musculoskeletal: Yes Neurologic: Yes (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) Reproductive: No Respiratory: Yes (DYSPNEA ON EXERTION) Integumentary: Yes (PSORIASIS) Immunizations Current: Yes Migraines: Yes Myocardial Infarction: Yes (X 2) Pancreatitis: Yes Radiation Therapy: No Renal Failure: No Schizophrenia: Yes Seizures: Yes (2007) Sickle Cell Disease: No Sleep Apnea: Yes (NO CPAP) Thyroid Disease: No Ulcer: Yes (PUD) PNEUMOCCOCAL Vaccine (Year): 1 Past Surgical History Abdominal Surgery: No AICD: No Appendectomy: No Arteriovenous Shunt: No Body Medical Devices: HARDWARE IN LEFT LEG Cardiac Surgery: Yes (4 ANGIOPLASTY) Ear Surgery: No Endocrine Surgery: No Eye Surgery: No Genitourinary Surgery: No Gynecologic Surgery: No Insulin Pump: No Joint Replacement: Yes (LLE PLATE AND SCREWS) Neurologic Surgery: No Oral Surgery: Yes (MULTIPLE EXTRACTIONS) Pacemaker: No Thoracic Surgery: No Other Surgery: Yes (LLE PLATE AND SCREWS, RIGHT HAND SURGERY) Social History Alcohol Use: Yes (on occasion) Tobacco Use: No Substance Use: No Allergies-Medications (Allergen,Severity, Reaction): Coded Allergies: codeine (Unverified Allergy, Severe, THROAT SWEELING, 04/22/18) fluoxetine (Unverified Allergy, Severe, Swelling, 04/22/18) *MDRO Multi-Drug Resistant Organism (Verified Allergy, Unknown, 04/22/18) MRSA heel wound 2007 MRSA PCR Screen negative 08/07/15 and 08/09/15. Cleared per Infection Control. Uncoded Allergies: OATMEAL (Allergy, Severe, HIVES, 08/29/09) Reported Meds & Prescriptions Reported Meds & Active Scripts Active Pantoprazole (Pantoprazole Sodium) 20 Mg Tab 20 Mg PO DAILY Reported Trulicity Inj (Dulaglutide Inj) 1.5 Mg/0.5 Ml Pen 1.5 Mg SQ Q7D Gabapentin 600 Mg Tab 600 Mg PO QID Trazodone (Trazodone HCl) 300 Mg Tab 300 Mg PO HS Lantus Inj (Insulin Glargine) 1,000 Unit/10 Ml Vial 16 Units SQ LUCH AND DINNER Aspirin 81 Mg Chew 81 Mg CHEW DAILY Hydrocodone-Acetaminophen 10-325 mg Tab 1 Tab PO QID PRN Nitroglycerin SL (Nitroglycerin) 0.4 Mg Subl 0.4 Mg SL DIRECTED PRN ONE TABLET UNDER THE TONGUE NEEDED FOR CHEST PAIN, MAY REPEAT EVERY FIVE MINUTES FOR A TOTAL OF 3 DOSES OR CALL 911 IF NO RELIEF Ziprasidone 80 Mg Cap 80 Mg PO BID Simvastatin 40 Mg Tab 40 Mg PO HS Mirtazapine 30 Mg Tab 30 Mg PO HS Isosorbide Mononitrate 20 Mg Tab 30 Mg PO DAILY Take 2 doses 7 hours apart. Lantus Inj (Insulin Glargine) 1,000 Unit/10 Ml Vial 65 Units SQ HS Novolog Inj (Insulin Aspart) 100 Unit/Ml Inj 100 Ml .XX DIRECTED Clopidogrel (Clopidogrel Bisulfate) 75 Mg Tab 75 Mg PO DAILY Abilify (Aripiprazole) 30 Mg Tab 30 Mg PO DAILY Metoprolol Tartrate 25 Mg Tab 25 Mg PO Q12HR Lisinopril 10 Mg Tab 10 Mg PO DAILY Review of Systems Except as stated in HPI: all other systems reviewed are Neg Physical Exam Narrative GENERAL: Well-nourished, well-developed male patient, afebrile. SKIN: Focused skin assessment warm/dry. HEAD: Normocephalic. Atraumatic. EYES: No scleral icterus. No injection or drainage. NECK: Supple, trachea midline. No JVD or lymphadenopathy. CARDIOVASCULAR: Regular rate and rhythm without murmurs, gallops, or rubs. Left pedal pulses 2+. RESPIRATORY: Breath sounds equal bilaterally. No accessory muscle use. Lung sounds are clear to auscultation. GASTROINTESTINAL: Abdomen soft, non-tender, nondistended. MUSCULOSKELETAL: No cyanosis, or edema. Bilateral upper and lower extremity strength 5/5. All extremities are neurovascularly intact. BACK: Nontender without obvious deformity. No CVA tenderness. Patient has tenderness over left lumbar paraspinal musculature. Straight leg raise is positive on the left side. No clonus. Data Data Last Documented VS Vital Signs Date Time Temp Pulse Resp B/P (MAP) Pulse Ox O2 Delivery O2 Flow Rate FiO2 04/22/18 14:51 98.4 69 20 133/70 (91) 96 Orders Orders Dexamethasone Inj (Decadron Inj) (04/22/18 15:30) Orphenadrine Inj (Norflex Inj) (04/22/18 15:30) MDM Medical Decision Making Medical Screen Exam Complete: Yes Emergency Medical Condition: Yes Medical Record Reviewed: Yes Differential Diagnosis Sciatica versus acute exacerbation of chronic back pain versus muscle strain versus muscle spasm versus herniated disc Narrative Course 57-year-old male presents to the emergency department for evaluation of left low back pain that radiates down the left leg. He is currently seeing Dr. Roberts and had a recent MRI. He is undergoing physical therapy. He states the pain increased after physical therapy. He is ambulatory. No red flag symptoms. No recent injury. Patient is diabetic. He states that his blood sugars are well-controlled. He is requesting a steroid injection. I agreed to this, but instructed that he must monitor his blood sugars closely. Patient will be given Norflex 60 mg IM, dexamethasone 8 mg IM. Patient will be discharged prescription for Robaxin and prednisone. He is instructed to monitor his blood sugars closely. He is to follow back up with Dr. Roberts. Patient verbalizes agreement. The patient was discharged in stable condition with instructions, including return instructions and follow up instructions. Diagnosis Primary Impression: Acute low back pain Qualified Codes: M54.42 - Lumbago with sciatica, left side Patient Instructions: General Instructions, Sciatica (ED) Additional Instructions: Continue your prescribed pain medication for pain. Take Robaxin, muscle relaxant, as directed as needed. Take prednisone as directed. Start this tomorrow. Please monitor your blood sugars closely while on prednisone. Follow-up with Dr. Roberts. Return to the emergency department for any acute worsening of symptoms. Med/Other Pt SpecificInfo: Prescription(s) given Scripts Prednisone (Prednisone) 20 Mg Tab 40 MG PO DAILY, #10 TAB 0 Refills Take 40 mg (2 tablets) daily for 5 days Prov: Char Castro 04/22/18 Methocarbamol (Robaxin) 750 Mg Tab 750 MG PO TID Y for MUSCLE SPASM, #21 TAB 0 Refills Prov: Char Castro 04/22/18 Disposition: 01 DISCHARGE HOME Condition: Stable Char Castro April 22, 2018 15:22
[2018-04-22] MEDS ORDERED: DEXAMETHASONE SOD PHOS 4 MG/ML VIAL IM ONE (15:30)
[2018-04-22] MEDS ORDERED: ORPHENADRINE INJ 60 MG/2 ML AMP IM ONE (15:30)
== END 2018-04-22 15:50 | disposition home or self-care (01) ==
LOC: NEPK 14:45
DX: M54.42 Lumbago with sciatica, left side (principal); M19.90 Unspecified osteoarthritis, unspecified site; F31.9 Bipolar disorder, unspecified; E78.00 Pure hypercholesterolemia, unspecified; I25.10 Atherosclerotic heart disease of native coronary artery without angina pectoris; E11.9 Type 2 diabetes mellitus without complications; I10 Essential (primary) hypertension; F20.9 Schizophrenia, unspecified; I25.2 Old myocardial infarction; M79.7 Fibromyalgia; Z86.73 Personal history of transient ischemic attack (TIA), and cerebral infarction without residual deficits; Z79.82 Long term (current) use of aspirin; Z79.4 Long term (current) use of insulin
CPT/HCPCS: 96372; 99283; J1100; J2360